=== PATIENT | male | born 1960 | race Caucasian/White ===

== ENCOUNTER 2019-02-24 17:41 | Emergency (ER) | payer BC, OTHER ==
[~2019-02-24] VITALS: Ht 172.7 cm; Wt 72.6 kg
--- NOTE | 2019-02-24 19:05 | NUR ---
still for I&D, endorsed to JOCELYNE Kenyon
[2019-02-24] MEDS ORDERED: CEFAZOLIN 1 G VIAL ONE (19:37)
[2019-02-24] MEDS ORDERED: CEFAZOLIN 1 G VIAL IM ONE (19:45)
--- NOTE | 2019-02-24 20:11 | NUR ---
Patient discharged to home in stable conditon. Written and verbal after care instructions given. Patient verbalizes understanding of instructions. Patient ambulated out of ER with stable gait.
[2019-02-24 20:13] VITALS: BP 151/90
== END 2019-02-24 20:13 | disposition home or self-care (01) ==
LOC: ER 17:45
DX: L02.416 Cutaneous abscess of left lower limb (principal); Z88.0 Allergy status to penicillin; Z88.1 Allergy status to other antibiotic agents
CPT/HCPCS: 10060; 96372; 99283; J0690; J3490 ×2; A4217; A4663